=== PATIENT | female | born 1990 | race Caucasian/White ===

== ENCOUNTER 2017-05-21 15:47 | Emergency (ER) | payer SELFPAY ==
[2017-05-21 15:50] VITALS: BP 116/71; PULSE 88; TEMP 98.6; BMI 25.6
--- NOTE | 2017-05-21 17:17 | PDOC ---
History of Present Illness <Hailee Moseley - Last Filed: 05/21/17 20:19> <Gricel Huffman - Last Filed: 05/21/17 20:31> - General History Source: Patient Exam Limitations: No Limitations - History of Present Illness Initial Comments: 05/24/17 12:04 Agent is return to the emergency department per instruction to have repeat beta hCG and possible ultrasound to rule out intrauterine versus ectopic . Patient was seen here 2 days ago found to have a beta hCG of 772 with out any evidence of intrauterine per ultrasound. States has continued very faint pink spotting without nausea, cramping, or any fever. Last normal menses was April 19, has had history of miscarriage, and this was a wanted 05/24/17 14:57 Timing/Duration: unsure Severity: mild <Althea Antonio - Last Filed: 05/24/17 14:57> - General Chief Complaint: Vaginal Bleeding Stated Complaint: 5 wks preg , vag bleed Time Seen by Provider: 05/21/17 16:38 Past History <Hailee Moseley - Last Filed: 05/21/17 20:19> - Past Medical History Cardiac Disorders: Yes (heart murmur) - Reproductive History Is Patient Now?: Yes (#): 3 Para: 2 Cervical CA: No Dysfunctional Uterine Bleeding: No Ectopic : No Endometrial CA: No Polycystic Ovaries: No Therapeutic (s) & number: No Tubal Ligation: No Spontaneous : 1 - Immunization History Immunization Up to Date: Yes - Suicide/Smoking/Psychosocial Hx Smoking Status: No Smoking History: Never smoked Have you smoked in the past 12 months: No Number of Cigarettes Smoked Daily: 0 Hx Alcohol Use: No Drug/Substance Use Hx: No Substance Use Type: None Hx Substance Use Treatment: No <Gricel Huffman - Last Filed: 05/21/17 20:31> - Travel Traveled outside of the country in the last 30 days: No Close contact w/someone who was outside of country & ill: No <Althea Antonio - Last Filed: 05/24/17 14:57> - Past Medical History Allergies/Adverse Reactions: Allergies Allergy/AdvReac Type Severity Reaction Status Date / Time latex Allergy Intermediate Verified 05/24/17 11:31 penicillin G Allergy Mild Rash Verified 05/24/17 11:31 Home Medications: Ambulatory Orders No Home Medications 0 dose .ROUTE UTDICT 04/03/12 Review of Systems - Review of Systems Able to Perform ROS?: Yes Is the patient limited Zambian proficient: Yes Constitutional: Yes: See HPI. No: Symptoms Reported, Chills, Fever, Malaise HEENTM: No: Symptoms Reported Respiratory: No: Symptoms reported ABD/GI: Yes: See HPI. No: Symptoms Reported, Nausea, Vomiting, Abdominal cramping : No: Symptoms Reported Integumentary: No: Symptoms Reported All Other Systems: Reviewed and Negative <Althea Antonio - Last Filed: 05/24/17 14:57> *Physical Exam - Vital Signs Last Vital Signs Temp Pulse Resp BP Pulse Ox 98.6 F 88 18 116/71 98 05/21/17 15:48 05/21/17 15:48 05/21/17 15:48 05/21/17 15:48 05/21/17 16:48 <Hailee Moseley - Last Filed: 05/21/17 20:19> - Vital Signs Last Vital Signs Temp Pulse Resp BP Pulse Ox 98.6 F 88 18 116/71 98 05/21/17 15:48 05/21/17 15:48 05/21/17 15:48 05/21/17 15:48 05/21/17 16:48 <Gricel Huffman - Last Filed: 05/21/17 20:31> - Vital Signs Last Vital Signs Temp Pulse Resp BP Pulse Ox 98.6 F 88 18 116/71 98 05/21/17 15:48 05/21/17 15:48 05/21/17 15:48 05/21/17 15:48 05/21/17 16:48 - Physical Exam General Appearance: Yes: Nourished, Appropriately Dressed HEENT: positive: AVINASH, Normal ENT Inspection, Normal Voice, TMs Normal, Pharynx Normal Neck: positive: Supple. negative: Tender, Lymphadenopathy (R), Lymphadenopathy (L) Respiratory/Chest: positive: Lungs Clear, Normal Breath Sounds Gastrointestinal/Abdominal: positive: Normal Bowel Sounds, Soft. negative: Tender, Guarding, Rebound, Tenderness Integumentary: positive: Normal Color, Dry, Warm Neurologic: positive: plant hr manager II-XII NML intact, Fully Oriented, Alert, Normal Mood/ Affect, Normal Response, Motor Strength 5/5 <PacoAlthea - Last Filed: 05/24/17 14:57> ED Treatment Course - LABORATORY CBC & Chemistry Diagram: 05/21/17 17:20 05/21/17 17:20 - ADDITIONAL ORDERS Additional order review: Laboratory Results 05/21/17 05/21/17 05/21/17 17:20 17:20 17:20 PT with INR 13.50 H INR 1.22 H Sodium 137 Potassium 3.8 Chloride 106 Carbon Dioxide 25 Anion Gap 6 L BUN 9 D Creatinine 0.7 Creat Clearance w eGFR > 60 Random Glucose 77 D Calcium 8.5 Total Bilirubin 0.7 AST 11 L ALT 18 Alkaline Phosphatase 52 Total Protein 7.1 Albumin 3.9 Beta HCG, Quant 772.5 Urine Color Yellow Urine Appearance Clear Urine pH 5.0 D Urine Protein Negative Urine Glucose (UA) Negative Urine Ketones Negative Urine Blood Negative Urine Nitrite Negative Urine Bilirubin Negative Urine Urobilinogen Negative 05/21/17 17:20 RBC 4.19 MCV 86.9 MCHC 34.4 RDW 13.5 MPV 7.7 Neutrophils % 65.7 Lymphocytes % 23.5 Monocytes % 8.3 Eosinophils % 1.6 Basophils % 0.9 - Medications Given in the ED: ED Medications Discontinued Medications Generic Name Dose Route Start Last Admin Trade Name Braedenq PRN Reason Stop Dose Admin Sodium Chloride 1,000 mls @ 1,000 mls/hr 05/21/17 17:19 05/21/17 17:31 Normal Saline - IV 05/21/17 18:18 Not Given ASDIR STA <Hailee Moseley - Last Filed: 05/21/17 20:19> - LABORATORY CBC & Chemistry Diagram: 05/21/17 17:20 05/21/17 17:20 <Gricel Huffman - Last Filed: 05/21/17 20:31> - LABORATORY CBC & Chemistry Diagram: 05/21/17 17:20 05/21/17 17:20 - ADDITIONAL ORDERS Additional order review: Laboratory Results 05/21/17 17:20 WBC 7.8 RBC 4.19 Hgb 12.5 Hct 36.4 MCV 86.9 MCH 29.9 MCHC 34.4 RDW 13.5 Plt Count 235 MPV 7.7 Neutrophils % 65.7 Lymphocytes % 23.5 Monocytes % 8.3 Eosinophils % 1.6 Basophils % 0.9 05/21/17 17:20 Urine Culture - Final Urine - Urine Clean Catch NO GROWTH OBTAINED 05/21/17 17:20 RBC 4.19 MCV 86.9 MCHC 34.4 RDW 13.5 MPV 7.7 Neutrophils % 65.7 Lymphocytes % 23.5 Monocytes % 8.3 Eosinophils % 1.6 Basophils % 0.9 - Medications Given in the ED: ED Medications Discontinued Medications Generic Name Dose Route Start Last Admin Trade Name Jessica PRN Reason Stop Dose Admin Acetaminophen 650 mg 05/21/17 20:27 05/21/17 20:41 Tylenol - PO 05/21/17 20:28 650 mg ONCE ONE Administration Sodium Chloride 1,000 mls @ 1,000 mls/hr 05/21/17 17:19 05/21/17 17:31 Normal Saline - IV 05/21/17 18:18 Not Given ASDIR STA Ondansetron HCl 4 mg 05/21/17 20:27 05/21/17 20:41 Zofran Odt - SL 05/21/17 20:28 4 mg ONCE ONE Administration <Althea Antonio - Last Filed: 05/24/17 14:57> *DC/Admit/Observation/Transfer - Discharge Dispostion Admit: No <Hailee Moseley - Last Filed: 05/21/17 20:19> - Discharge Dispostion Admit: No <Gricel Huffman - Last Filed: 05/21/17 20:31> - Discharge Dispostion Admit: No <Althea Antonio - Last Filed: 05/24/17 14:57> Diagnosis at time of Disposition: Threatened , Vaginal bleeding in - Discharge Dispostion Disposition: HOME Condition at time of disposition: Stable - Referrals Referrals: Haydee Dawn MD [Primary Care Provider] - Temi Rodriguez MD [Staff Physician] - Kevan Lockhart MD [Staff Physician] - - Patient Instructions Printed Discharge Instructions: Threatened , DI for Ectopic Additional Instructions: you need to return to emergency room for repeat blood work in 72 hours, or see your ostetrician. your hormone levels are too low to see the yet. however, we still are concerned with ectopic . therefore, should you develop sudden worsening pain, feeling lightheaded or any concerns you should return to ED immediately. your blood type is O positive. your labs are attached as is your ultrasound report.
[2017-05-21] MEDS ORDERED: SODIUM CHLORIDE 1,000 ML IV STA (17:19)
[2017-05-21 17:38] LABS: BASOPHIL 0.9 % (0-2.0); EOSINOPHIL 1.6 % (0-4.5); MCH 29.9 pg (25.7-33.7); MCHC 34.4 g/dl (32.0-36.0); MEAN CELL VOLUME 86.9 fl (80-96); MEAN PLT VOLUME 7.7 fl (7.5-11.1); NEUTROPHILS 65.7 % (42.8-82.8); PLATELET COUNT 235 K/MM3 (134-434); RDW 13.5 % (11.6-15.6); WHITE BLOOD COUNT 7.8 K/mm3 (4.0-10.0)
[2017-05-21 17:48] LABS: INR 1.22 (0.82-1.09); PROTHROMBIN TIME (PATIENT) 13.5 SEC (9.98-11.88)
[2017-05-21 18:04] LABS: ALBUMIN 3.9 g/dl (3.4-5.0); ANION GAP 6 (8-16); CALCIUM 8.5 mg/dL (8.5-10.1); CO2 25 mmol/L (21-32); CREATININE 0.7 mg/dL (0.55-1.02); GLUCOSE,RANDOM 77 mg/dL (74-106); SGOT/AST 11 U/L (15-37); SGPT/ALT 18 U/L (12-78)
[2017-05-21 18:09] LABS: ALK PHOS 52 U/L (45-117); BILIRUBIN,TOTAL 0.7 mg/dL (0.2-1.0); TOT PROT 7.1 g/dl (6.4-8.2)
[2017-05-21 18:14] LABS: URINE APPEARANCE CLEAR; URINE BILIRUBIN NEGATIVE (NEGATIVE); URINE BLOOD NEGATIVE (NEGATIVE); URINE COLOR YELLOW; URINE GLUCOSE (UA) NEGATIVE (NEGATIVE); URINE KETONE NEGATIVE (NEGATIVE); URINE LEUK ESTERASE NEGATIVE (NEGATIVE); URINE NITRITE NEGATIVE (NEGATIVE); URINE PROTEIN NEGATIVE (NEGATIVE); URINE UROBILINOGEN NEGATIVE mg/dL (0.2-1.0)
[2017-05-21] MEDS ORDERED: ACETAMINOPHEN 325 MG TABLET (FP) PO ONE (20:27)
[2017-05-21] MEDS ORDERED: ONDANSETRON *ODT* 4 MG TABLET SL ONE (20:27)
[2017-05-21] MEDS ORDERED: ONDANSETRON *ODT* 4 MG TABLET ONE (20:30)
[2017-05-21] MEDS ORDERED: ACETAMINOPHEN 325 MG TABLET (FP) ONE (20:30)
== END 2017-05-21 20:42 | disposition home or self-care (01) ==
LOC: JER 15:47
DX: O20.0 Threatened abortion (principal); Z3A.01 Less than 8 weeks gestation of pregnancy
CPT/HCPCS: 36415; 76817-TC; 80053; 81003; 84702; 85025; 85610; 87086; 99283-25

== ENCOUNTER 2017-05-24 11:27 | Emergency (ER) | payer OTHER ==
[2017-05-24 11:31] VITALS: BP 110/70; PULSE 81; TEMP 98; BMI 26.4
--- NOTE | 2017-05-24 11:55 | PDOC ---
History of Present Illness - General Chief Complaint: [facility] [place] Stated Complaint: BETA HCG TEST Time Seen by Provider: 05/24/17 11:54 Exam Limitations: No Limitations Past History - Past Medical History Allergies/Adverse Reactions: Allergies Allergy/AdvReac Type Severity Reaction Status Date / Time latex Allergy Intermediate Verified 05/24/17 11:31 penicillin G Allergy Mild Rash Verified 05/24/17 11:31 Home Medications: Ambulatory Orders No Home Medications 0 dose .ROUTE UTDICT 04/03/12 Cardiac Disorders: Yes (heart murmur) - Reproductive History (#): 3 Para: 2 Cervical CA: No Dysfunctional Uterine Bleeding: No Ectopic : No Endometrial CA: No Polycystic Ovaries: No Therapeutic (s) & number: No Tubal Ligation: No Spontaneous : 1 - Immunization History Immunization Up to Date: Yes - Suicide/Smoking/Psychosocial Hx Smoking Status: No Smoking History: Never smoked Have you smoked in the past 12 months: No Number of Cigarettes Smoked Daily: 0 Information on smoking cessation initiated: No Hx Alcohol Use: No Drug/Substance Use Hx: No Substance Use Type: None Hx Substance Use Treatment: No *Physical Exam - Vital Signs Last Vital Signs Temp Pulse Resp BP Pulse Ox 98 F 81 18 110/70 100 05/24/17 11:28 05/24/17 11:28 05/24/17 11:28 05/24/17 11:28 05/24/17 11:28
--- NOTE | 2017-05-24 13:03 | PDOC ---
History of Present Illness - General Chief Complaint: [facility] [place] Complaint: BETA HCG TEST Time Seen by Provider: 05/24/17 11:54 History Source: Patient Exam Limitations: No Limitations - History of Present Illness Initial Comments: 05/24/17 11:30 Agent is return to the emergency department per instruction to have repeat beta hCG and possible ultrasound to rule out intrauterine versus ectopic . Patient was seen here 2 days ago found to have a beta hCG of 772 with out any evidence of intrauterine per ultrasound. States has continued very faint pink spotting without nausea, cramping, or any fever. Last normal menses was April 19, has had history of miscarriage, and this was a wanted Timing/Duration: unsure Severity: mild Associated Symptoms: reports: denies symptoms Past History - Travel Traveled outside of the country in the last 30 days: No Close contact w/someone who was outside of country & ill: No - Past Medical History Allergies/Adverse Reactions: Allergies Allergy/AdvReac Type Severity Reaction Status Date / Time latex Allergy Intermediate Verified 05/24/17 11:31 penicillin G Allergy Mild Rash Verified 05/24/17 11:31 Home Medications: Ambulatory Orders No Home Medications 0 dose .ROUTE UTDICT 04/03/12 Cardiac Disorders: Yes (heart murmur) - Reproductive History (#): 3 Para: 2 Cervical CA: No Dysfunctional Uterine Bleeding: No Ectopic : No Endometrial CA: No Polycystic Ovaries: No Therapeutic (s) & number: No Tubal Ligation: No Spontaneous : 1 - Immunization History Immunization Up to Date: Yes - Suicide/Smoking/Psychosocial Hx Smoking Status: No Smoking History: Never smoked Have you smoked in the past 12 months: No Number of Cigarettes Smoked Daily: 0 Information on smoking cessation initiated: No Hx Alcohol Use: No Drug/Substance Use Hx: No Substance Use Type: None Hx Substance Use Treatment: No Review of Systems - Review of Systems Able to Perform ROS?: Yes Is the patient limited Divehi proficient: Yes Constitutional: Yes: See HPI. No: Symptoms Reported, Chills, Fever, Loss of Appetite, Malaise HEENTM: No: Symptoms Reported Respiratory: No: Symptoms reported Cardiac (ROS): No: Symptoms Reported Musculoskeletal: No: Symptoms Reported Integumentary: Yes: See HPI. No: Symptoms Reported, Bruising Neurological: Yes: See HPI. No: Symptoms reported All Other Systems: Reviewed and Negative *Physical Exam - Vital Signs Last Vital Signs Temp Pulse Resp BP Pulse Ox 98 F 81 18 110/70 100 05/24/17 11:28 05/24/17 11:28 05/24/17 11:28 05/24/17 11:28 05/24/17 11:28 - Physical Exam General Appearance: Yes: Nourished, Appropriately Dressed. No: Apparent Distress HEENT: positive: AVINASH, Normal ENT Inspection, Normal Voice, TMs Normal, Pharynx Normal Neck: positive: Supple. negative: Tender Respiratory/Chest: positive: Lungs Clear Gastrointestinal/Abdominal: positive: Soft. negative: Tender Musculoskeletal: negative: CVA Tenderness ED Treatment Course - ADDITIONAL ORDERS Additional order review: Laboratory Results 05/24/17 11:55 Beta HCG, Quant 2474.7 - RADIOLOGY Radiology Studies Ordered: Category Date Time Status TRANSVAGINAL US PREG [US] Stat Ultrasound 05/24/17 12:03 Taken *DC/Admit/Observation/Transfer Diagnosis at time of Disposition: Normal IUP (intrauterine ) on ultrasound Qualifiers: Trimester: first trimester Qualified Code(s): Z34.91 - Encounter for supervision of normal , unspecified, first trimester - Discharge Dispostion Disposition: HOME Condition at time of disposition: Stable Admit: No - Referrals Referrals: Haydee Dawn MD [Primary Care Provider] - Car Sanchez MD [Staff Physician] - - Patient Instructions Printed Discharge Instructions: Vaginal Bleeding During Additional Instructions: Rest, drink lots of fluids follow-up with HSE MANAGER to initiate care Return to emergency department for fevers, worsening bleeding or cramping, or other problems. - Post Discharge Activity Forms/Work/School Notes: Back to Work
== END 2017-05-24 14:00 | disposition home or self-care (01) ==
LOC: JERFT 11:27
DX: O26.891 Other specified pregnancy related conditions, first trimester (principal); Z3A.01 Less than 8 weeks gestation of pregnancy
CPT/HCPCS: 36415; 76817-TC; 84702; 99281-25

== ENCOUNTER 2017-06-06 10:05 | Emergency (ER) | payer OTHER ==
[2017-06-06 10:12] VITALS: BMI 26.4
--- NOTE | 2017-06-06 11:36 | PDOC ---
History of Present Illness - General History Source: Patient Exam Limitations: No Limitations - History of Present Illness Initial Comments: 06/06/17 12:26 The patient is a 26 year old female (7 weeks by LMP) with a significant past medical history of heart murmur (on no tx) who presents to the emergency department with 1 episode of hematemesis last night. Patient endorses 1 episode of blood mixed in with emesis after she had NBNB emesis 4 times last night. In addition, patient reports abdominal cramping with vaginal spotting (no clots) mixed with white discharge intermittently for 4 weeks. Pt was seen here on 05/24 for the vaginal bleeding and diagnosed with threatened . She has not seen her OB doctor due to insurance issues. She also reports nausea and chills. Patient has not been able to tolerate PO liquids or solids. LMP: April 19, 2017. Patient reports unprotected sex with one partner for the past year. No hx of STDs Patient denies sick contacts, recent illnesses, recent travel. She denies chest pain, headache or dizziness. She denies fever, chills, abdominal pain, nausea, vomit, diarrhea or constipation. She denies dysuria, frequency, urgency or hematuria. Allergies: Latex, penicillin G Past surgical history: None Social history: None PCP: None <Sunshine Nguyen - Last Filed: 06/06/17 12:26> <Michelle Jamison - Last Filed: 06/06/17 17:36> - General Chief Complaint: Nausea/Vomiting Stated Complaint: LOWER PELVIC PAIN Time Seen by Provider: 06/06/17 10:34 Past History <Sunshine Nguyen - Last Filed: 06/06/17 12:26> - Past Medical History Cardiac Disorders: Yes (heart murmur) - Reproductive History (#): 3 Para: 2 Cervical CA: No Dysfunctional Uterine Bleeding: No Ectopic : No Endometrial CA: No Polycystic Ovaries: No Therapeutic (s) & number: No Tubal Ligation: No Spontaneous : 1 - Immunization History Immunization Up to Date: Yes - Suicide/Smoking/Psychosocial Hx Smoking Status: No Smoking History: Never smoked Have you smoked in the past 12 months: No Number of Cigarettes Smoked Daily: 0 Hx Alcohol Use: No Drug/Substance Use Hx: No Substance Use Type: None Hx Substance Use Treatment: No <Michelle Jamison - Last Filed: 06/06/17 17:36> - Past Medical History Allergies/Adverse Reactions: Allergies Allergy/AdvReac Type Severity Reaction Status Date / Time latex Allergy Intermediate Verified 06/06/17 10:12 penicillin G Allergy Mild Rash Verified 06/06/17 10:12 Home Medications: Ambulatory Orders No Home Medications 0 dose .ROUTE UTDICT 04/03/12 Review of Systems - Review of Systems Able to Perform ROS?: Yes Comments:: 06/06/17 12:27 GENERAL/CONSTITUTIONAL:+chills. No fever. No weakness. HEAD, EYES, EARS, NOSE AND THROAT: No change in vision. No ear pain or discharge. No sore throat. CARDIOVASCULAR: No chest pain or shortness of breath. RESPIRATORY: No cough, wheezing, or hemoptysis. GASTROINTESTINAL: +nausea, vomiting, hematemesis. No diarrhea or constipation. GENITOURINARY: +pelvic cramping. No dysuria, frequency, or change in urination. MUSCULOSKELETAL: No joint or muscle swelling or pain. No neck or back pain. SKIN: No rash NEUROLOGIC: No headache, vertigo, loss of consciousness, or change in strength/ sensation. ENDOCRINE: No increased thirst. No abnormal weight change. HEMATOLOGIC/LYMPHATIC: No anemia, easy bleeding, or history of blood clots. ALLERGIC/IMMUNOLOGIC: No hives or skin allergy. PELVIC: +vaginal bleeding. +vaginal discharge. <PatrikcSunshine coto - Last Filed: 06/06/17 12:26> *Physical Exam - Vital Signs Last Vital Signs Temp Pulse Resp BP Pulse Ox 98.3 F 101 H 20 113/67 99 06/06/17 10:10 06/06/17 10:10 06/06/17 10:10 06/06/17 10:10 06/06/17 10:10 - Physical Exam Comments: 06/06/17 12:27 GENERAL: Awake, alert, and fully oriented, in no acute distress HEAD: No signs of trauma EYES: PERRLA, EOMI, sclera anicteric, conjunctiva clear ENT: Auricles normal inspection, hearing grossly normal, nares patent, oropharynx clear without exudates. Moist mucosa NECK: Normal ROM, supple, no lymphadenopathy, JVD, or masses LUNGS: Breath sounds equal, clear to auscultation bilaterally. No wheezes, and no crackles HEART: Regular rate and rhythm, normal S1 and S2, no murmurs, rubs or gallops ABDOMEN: Soft, nontender, normoactive bowel sounds. No guarding, no rebound. No masses HAND SCREEN PRINTER: os closed. moderate amount of malodorous thick white discharge in the vault. No CMT, no adnexal ttp, no bleeding. EXTREMITIES: Normal range of motion, no edema. No clubbing or cyanosis. No cords, erythema, or tenderness NEUROLOGICAL: Normal speech, cranial nerves intact, negative pronator drift, 5/ 5 strength in all 4 extremities, normal sensation to light touch in all 4 extremities, normal cerebellar exam, normal gait, normal reflexes and tone SKIN: Warm, Dry, normal turgor, no rashes or lesions noted. <Sunshine Nguyen - Last Filed: 06/06/17 12:26> - Vital Signs Last Vital Signs Temp Pulse Resp BP Pulse Ox 98.3 F 101 H 20 113/67 99 06/06/17 10:10 06/06/17 10:10 06/06/17 10:10 06/06/17 10:10 06/06/17 10:10 <Michelle Jamison - Last Filed: 06/06/17 17:36> ED Treatment Course - LABORATORY CBC & Chemistry Diagram: 06/06/17 11:36 06/06/17 11:36 - ADDITIONAL ORDERS Additional order review: 06/06/17 11:36 RBC 4.61 MCV 86.9 MCHC 33.8 RDW 13.3 MPV 7.8 Neutrophils % 71.7 Lymphocytes % 18.0 D Monocytes % 8.6 Eosinophils % 1.1 Basophils % 0.6 - Medications Given in the ED: ED Medications Discontinued Medications Generic Name Dose Route Start Last Admin Trade Name Freq PRN Reason Stop Dose Admin Ondansetron HCl 4 mg 06/06/17 11:37 06/06/17 11:47 Zofran Injection IVPUSH 06/06/17 11:38 4 mg ONCE ONE Administration Sodium Chloride 1,000 ml 06/06/17 11:37 06/06/17 11:47 Normal Saline - IV 06/06/17 11:38 1,000 ml ONCE ONE Administration <Sunshine Nguyen - Last Filed: 06/06/17 12:26> - LABORATORY CBC & Chemistry Diagram: 06/06/17 11:36 06/06/17 11:36 - RADIOLOGY Radiology Studies Ordered: Category Date Time Status TRANSVAGINAL US PREG [US] Stat Ultrasound 06/06/17 11:29 Ordered <Michelle Jamison - Last Filed: 06/06/17 17:36> Medical Decision Making - Medical Decision Making 06/06/17 12:31 26-year-old female presents at approximately 7 weeks with one episode of hematemesis last night in the setting of N/V, and continuing vaginal spotting and white vaginal discharge. Patient also reporting by mouth intolerance. Vitals are unremarkable here in the emergency department. Exam is remarkable for thick malodorous vaginal discharge on speculum exam that no cervical motion tenderness and no adnexal tenderness to palpation. Episode of hematemesis likely [place], given it followed multiple episodes of vomiting and patient said it was bright red blood mixed in with emesis. Vaginal bleeding concerning for threatened . Vaginal discharge c/f possible STD - GC/CT swab sent. -labs -UA -GC/CT -TVUS -IVF -antiemetics -PO chall -reassess 06/06/17 17:08 US with normal intrauterine with small subchorionic hematoma - this may be the reason for her vaginal spotting. Labs and UA unremarkable. GC/CT pending. Pt with no vomiting during 7 hour ED stay. Tolerating PO. Will DC to follow up with OB as an outpatient. I discussed the physical exam findings, ancillary test results and final diagnoses with the patient. I answered all of the patient's questions. The patient was satisfied with the care received and felt comfortable with the discharge plan and treatment plan. The patient will call their primary care physician within 24 hours to arrange follow-up and will return to the Emergency Department with any new, persistent or worsening symptoms. <Michelle Jamison - Last Filed: 06/06/17 17:36> *DC/Admit/Observation/Transfer - Attestations Scribe Attestion: 06/06/17 12:27 Documentation prepared by Sunshine Nguyen, acting as medical assembly for Michelle Jamison MD <Sunshine Nguyen - Last Filed: 06/06/17 12:26> - Discharge Dispostion Admit: No - Attestations Physician Attestion: 06/06/17 17:33 I, Dr. Michelle Jamison MD, attest that this document has been prepared under my direction and personally reviewed by me in its entirety. I further attest, that it accurately reflects all work, treatment, procedures and medical decision -making performed by me. <Michelle Jamison - Last Filed: 06/06/17 17:36> Diagnosis at time of Disposition: Vaginal bleeding in , Normal IUP (intrauterine ) on ultrasound - Discharge Dispostion Disposition: HOME Condition at time of disposition: Stable - Patient Instructions Printed Discharge Instructions: DI for Vomiting -- Adult Additional Instructions: Please follow up with an OB doctor within 1 week. Return to the emergency department immediately for any new or concerning symptoms or if your symptoms get worse. Thank you for coming to the Emergency Department today for your care. It was a pleasure to see you today. Please note that your evaluation is INCOMPLETE until you follow-up with your doctor.
[2017-06-06] MEDS ORDERED: ONDANSETRON 4 MG/2 ML VIAL IVPUSH ONE (11:37)
[2017-06-06] MEDS ORDERED: SODIUM CHLORIDE 0.9% 500 ML INFUS.BAG IV ONE (11:37)
[2017-06-06] MEDS ORDERED: ONDANSETRON 4 MG/2 ML VIAL ONE (11:41)
[2017-06-06 11:45] LABS: BASOPHIL 0.6 % (0-2.0); EOSINOPHIL 1.1 % (0-4.5); MCH 29.3 pg (25.7-33.7); MCHC 33.8 g/dl (32.0-36.0); MEAN CELL VOLUME 86.9 fl (80-96); MEAN PLT VOLUME 7.8 fl (7.5-11.1); NEUTROPHILS 71.7 % (42.8-82.8); PLATELET COUNT 234 K/MM3 (134-434); RDW 13.3 % (11.6-15.6); WHITE BLOOD COUNT 8.3 K/mm3 (4.0-10.0)
[2017-06-06 12:10] LABS: ALBUMIN 4.1 g/dl (3.4-5.0); ANION GAP 6 (8-16); BILIRUBIN,TOTAL 0.9 mg/dL (0.2-1.0); CALCIUM 9.4 mg/dL (8.5-10.1); CO2 27 mmol/L (21-32); CREATININE 0.8 mg/dL (0.55-1.02); GLUCOSE,RANDOM 74 mg/dL (74-106); MAGNESIUM 2.2 mg/dL (1.8-2.4); SGOT/AST 11 U/L (15-37); SGPT/ALT 20 U/L (12-78); TOT PROT 7.8 g/dl (6.4-8.2)
[2017-06-06 12:25] LABS: ALK PHOS 57 U/L (45-117)
[2017-06-06 13:01] LABS: URINE APPEARANCE SLCLOUDY; URINE BILIRUBIN NEGATIVE (NEGATIVE); URINE BLOOD NEGATIVE (NEGATIVE); URINE COLOR YELLOW; URINE GLUCOSE (UA) NEGATIVE (NEGATIVE); URINE KETONE TRACE (NEGATIVE); URINE LEUK ESTERASE TRACE (NEGATIVE); URINE NITRITE NEGATIVE (NEGATIVE); URINE PROTEIN NEGATIVE (NEGATIVE)
[2017-06-06 13:24] LABS: URINE MUCUS MODERATE; URINE WBC 2 /hpf (3-5)
[2017-06-06 17:48] VITALS: BP 100/65; PULSE 72; TEMP 98.6
--- NOTE | 2017-06-06 19:06 | PDOC ---
*Physical Exam - Vital Signs Last Vital Signs Temp Pulse Resp BP Pulse Ox 98.6 F 72 18 100/65 100 06/06/17 17:47 06/06/17 17:47 06/06/17 17:47 06/06/17 17:47 06/06/17 17:47 ED Treatment Course - LABORATORY CBC & Chemistry Diagram: 06/06/17 11:36 06/06/17 11:36 - ADDITIONAL ORDERS Additional order review: Laboratory Results 06/06/17 06/06/17 06/06/17 11:36 11:34 11:29 Sodium 135 L Potassium 3.9 Chloride 102 Carbon Dioxide 27 Anion Gap 6 L BUN 6 L D Creatinine 0.8 Creat Clearance w eGFR > 60 Random Glucose 74 Calcium 9.4 Magnesium 2.2 D Total Bilirubin 0.9 D AST 11 L ALT 20 Alkaline Phosphatase 57 Total Protein 7.8 Albumin 4.1 Beta HCG, Quant 98264.9 Urine Color Yellow Urine Appearance Slcloudy Urine pH 6.0 Ur Specific [place] 1.020 Urine Protein Negative Urine Glucose (UA) Negative Urine Ketones Trace H Urine Blood Negative Urine Nitrite Negative Urine Bilirubin Negative Urine Urobilinogen 2.0 H Urine RBC None Urine WBC 2 Ur Epithelial Cells Rare Urine Mucus Moderate Blood Type O POSITIVE Antibody Screen Negative 06/06/17 11:36 RBC 4.61 MCV 86.9 MCHC 33.8 RDW 13.3 MPV 7.8 Neutrophils % 71.7 Lymphocytes % 18.0 D Monocytes % 8.6 Eosinophils % 1.1 Basophils % 0.6 - Medications Given in the ED: ED Medications Discontinued Medications Generic Name Dose Route Start Last Admin Trade Name Jessica PRN Reason Stop Dose Admin Ondansetron HCl 4 mg 06/06/17 11:37 06/06/17 11:47 Zofran Injection IVPUSH 06/06/17 11:38 4 mg ONCE ONE Administration Sodium Chloride 1,000 ml 06/06/17 11:37 06/06/17 11:47 Normal Saline - IV 06/06/17 11:38 1,000 ml ONCE ONE Administration Medical Decision Making - Medical Decision Making 06/06/17 19:02 pt called saying her prescription did not go through to the pharmacy. sent Rx to pharmacy *DC/Admit/Observation/Transfer Diagnosis at time of Disposition: Vaginal bleeding in , Normal IUP (intrauterine ) on ultrasound - Discharge Dispostion Disposition: HOME Condition at time of disposition: Stable - Prescriptions Prescriptions: Ondansetron [Zofran Odt -] 4 mg SL TID PRN #6 od.tablet PRN Reason: Nausea - Referrals - Patient Instructions Printed Discharge Instructions: DI for Vomiting -- Adult Additional Instructions: Please follow up with an OB doctor within 1 week. Return to the emergency department immediately for any new or concerning symptoms or if your symptoms get worse. Thank you for coming to the Emergency Department today for your care. It was a pleasure to see you today. Please note that your evaluation is INCOMPLETE until you follow-up with your doctor. - Post Discharge Activity
== END 2017-06-06 17:49 | disposition home or self-care (01) ==
LOC: JER 10:05
PROC: 3E0333Z Introduction of Anti-inflammatory into Peripheral Vein, Percutaneous Approach (ICD-10-PCS; principal; 2017-06-06)
PROC: 3E0337Z Introduction of Electrolytic and Water Balance Substance into Peripheral Vein, Percutaneous Approach (ICD-10-PCS; 2017-06-06)
DX: O26.891 Other specified pregnancy related conditions, first trimester (principal); N93.9 Abnormal uterine and vaginal bleeding, unspecified; Z3A.01 Less than 8 weeks gestation of pregnancy
CPT/HCPCS: 36415; 76801-TC; 80053; 81003; 81015; 83735; 84702; 85025; 86850; 86900; 86901; 87086; 87491; 87591; 96361; 96374; 99284-25

== ENCOUNTER 2017-06-13 17:47 | Emergency (ER) | payer OTHER ==
[2017-06-13 17:52] VITALS: BMI 26.4
--- NOTE | 2017-06-13 18:15 | PDOC ---
History of Present Illness - General Chief Complaint: Nausea/Vomiting Stated Complaint: VOMITTING 8wks preg Time Seen by Provider: 06/13/17 18:11 History Source: Patient - History of Present Illness Initial Comments: 06/13/17 18:24 Patient is a 27 y.o. female @ 8 weeks gestation with a PMH of repeated visits to the ED for her primary care presents to our ED today c/o a 5 day h/o of nausea and vomiting. Patient states she has been vomiting 10-15x daily ( whitish/yellowsih, no yoselin blood) and has limited tolerance to PO intake. Patient denies any systemic signs of infection including fevers or chills. Patient further denies any abdominal pain, chest pain or shortness of breath and notes the Zofran she was prescribed on discharge from her 06/06 evaluation worked. Past History - Past Medical History Allergies/Adverse Reactions: Allergies Allergy/AdvReac Type Severity Reaction Status Date / Time latex Allergy Intermediate Verified 06/13/17 17:52 penicillin G Allergy Mild Rash Verified 06/13/17 17:52 Home Medications: Ambulatory Orders No Home Medications 0 dose .ROUTE UTDICT 04/03/12 Ondansetron [Zofran Odt -] 4 mg SL TID PRN #6 od.tablet 06/06/17 Nitrofurantoin Monohyd/M-Cryst [Macrobid -] 100 mg PO BID #14 capsule 06/14/17 Ondansetron [Zofran Odt -] 4 mg SL TID #15 od.tablet 06/14/17 Cardiac Disorders: Yes (heart murmur) - Reproductive History (#): 3 Para: 2 Cervical CA: No Dysfunctional Uterine Bleeding: No Ectopic : No Endometrial CA: No Polycystic Ovaries: No Therapeutic (s) & number: No Tubal Ligation: No Spontaneous : 1 - Immunization History Immunization Up to Date: Yes - Suicide/Smoking/Psychosocial Hx Smoking Status: No Smoking History: Never smoked Have you smoked in the past 12 months: No Number of Cigarettes Smoked Daily: 0 Hx Alcohol Use: No Drug/Substance Use Hx: No Substance Use Type: None Hx Substance Use Treatment: No Review of Systems - Review of Systems Constitutional: No: Chills, Fever HEENTM: No: Blurred Vision, Double Vision Respiratory: No: Cough, Shortness of Breath Cardiac (ROS): No: Chest Pain, Irregular Heart Rate, Lightheadedness, Palpitations ABD/GI: Yes: Nausea, Vomiting. No: Constipated, Diarrhea : No: Burning, Dysuria All Other Systems: Reviewed and Negative *Physical Exam - Vital Signs Last Vital Signs Temp Pulse Resp BP Pulse Ox 98.7 F 83 17 118/73 99 06/13/17 17:50 06/13/17 17:50 06/13/17 17:50 06/13/17 17:50 06/13/17 17:50 - Physical Exam General Appearance: Yes: Nourished, Appropriately Dressed Neck: positive: Trachea midline, Supple Respiratory/Chest: positive: Lungs Clear, Normal Breath Sounds Cardiovascular: positive: S1, S2 Gastrointestinal/Abdominal: positive: Soft Neurologic: positive: Fully Oriented, Alert ED Treatment Course - LABORATORY CBC & Chemistry Diagram: 06/13/17 18:36 06/13/17 18:36 Medical Decision Making - Medical Decision Making 06/16/17 21:43 Patient is a 27 y.o. female @ 8 weeks gestation who presents with a c/o of repeated nausea and vomiting. Clinical suspicion for hyperemesis gravidum is low as patient is in her first trimester. DDx likely vomiting associated with vs. gatroenteritis PLAN: 1. CBC, CMP 2. UA/Urine 3. IV NS Patient signed out to Dr. Beach (Resident) in stable condition. *DC/Admit/Observation/Transfer Diagnosis at time of Disposition: Vomiting Qualifiers: Qualified Code(s): R11.2 - Nausea with vomiting, unspecified - Discharge Dispostion Disposition: HOME - Prescriptions Prescriptions: Nitrofurantoin Monohyd/M-Cryst [Macrobid -] 100 mg PO BID #14 capsule Ondansetron [Zofran Odt -] 4 mg SL TID #15 od.tablet - Patient Instructions Printed Discharge Instructions: DI for Vomiting -- Adult Additional Instructions: Please follow up with an OB doctor within 1-2 weeks. Please return if any fever , exacerbation of symptoms, or other concerning developments. Print Language: AZERI
--- NOTE | 2017-06-13 18:30 | PDOC ---
Attending Attestation - Resident Resident Name: JahairaPricilla - ED Attending Attestation I have performed the following: I have examined & evaluated the patient, The case was reviewed & discussed with the resident, I agree w/resident's findings & plan, Exceptions are as noted - HPI HPI: 06/13/17 18:25 26yo F currently 8 weeks preg p/w 5 days of nausea and vomiting. Reports 10 -15 episodes of NBNB emesis per day a/w decreased PO intake. Has not been able to keep anything down since yesterday. Reports that the zofran she was prescribed last time helped but she ran out. Pt was seen by me last week and was advised to f/u with OB and PMD and has yet to do so because she is uninsured until 07/05. Denies other symptoms of fevers, chills, dizziness, SOB, abd pain, vaginal dc or bleeding, focal weakness or numbness. Reports vaginal bleeding has stopped since she was last here. - Physicial Exam PE: 06/13/17 18:28 GENERAL: Awake, alert, and fully oriented, in no acute distress HEAD: No signs of trauma EYES: PERRLA, EOMI, sclera anicteric, conjunctiva clear ENT: Auricles normal inspection, hearing grossly normal, nares patent, oropharynx clear without exudates. Moist mucosa NECK: Normal ROM, supple, no lymphadenopathy, JVD, or masses LUNGS: Breath sounds equal, clear to auscultation bilaterally. No wheezes, and no crackles HEART: Regular rate and rhythm, normal S1 and S2, no murmurs, rubs or gallops ABDOMEN: Soft, nontender, normoactive bowel sounds. No guarding, no rebound. No masses EXTREMITIES: Normal range of motion, no edema. No clubbing or cyanosis. No cords, erythema, or tenderness NEUROLOGICAL: Normal speech, cranial nerves intact, negative pronator drift, 5/ 5 strength in all 4 extremities, normal sensation to light touch in all 4 extremities, normal cerebellar exam, normal gait, normal reflexes and tone SKIN: Warm, Dry, normal turgor, no rashes or lesions noted. - Medical Decision Making 06/13/17 20:26 26-year-old female currently 8 weeks presents with nausea and vomiting for 5 days. Vitals and exam are unremarkable. Differential includes but is not limited to gastroenteritis vs hypermesis of vs infection. -labs -UA -IVF -antiemetics -reassess 06/13/17 22:32 UA+ for infection. Pt tolerated PO challenge. Will DC with macrobid and ODT zofran PRN nausea. I discussed the physical exam findings, ancillary test results and final diagnoses with the patient. I answered all of the patient's questions. The patient was satisfied with the care received and felt comfortable with the discharge plan and treatment plan. The patient will call their primary care physician within 24 hours to arrange follow-up and will return to the Emergency Department with any new, persistent or worsening symptoms.
[2017-06-13] MEDS ORDERED: SODIUM CHLORIDE 0.9% 1000 ML INFUS.BAG IV ONE (18:32)
[2017-06-13 18:49] LABS: BASOPHIL 0.9 % (0-2.0); EOSINOPHIL 0.7 % (0-4.5); MCH 29.6 pg (25.7-33.7); MEAN CELL VOLUME 87.1 fl (80-96); MEAN PLT VOLUME 7.7 fl (7.5-11.1); NEUTROPHILS 73.4 % (42.8-82.8); PLATELET COUNT 220 K/MM3 (134-434); RDW 13.1 % (11.6-15.6)
[2017-06-13 19:05] LABS: URINE APPEARANCE CLOUDY; URINE BILIRUBIN NEGATIVE (NEGATIVE); URINE BLOOD NEGATIVE (NEGATIVE); URINE COLOR DKYELLOW; URINE GLUCOSE (UA) NEGATIVE (NEGATIVE); URINE KETONE 2+ (NEGATIVE); URINE NITRITE NEGATIVE (NEGATIVE)
[2017-06-13] MEDS ORDERED: ONDANSETRON 4 MG/2 ML VIAL IVPB ONE (19:21)
--- NOTE | 2017-06-13 19:28 | PDOC ---
*Physical Exam - Vital Signs Last Vital Signs Temp Pulse Resp BP Pulse Ox 98.7 F 83 17 118/73 99 06/13/17 17:50 06/13/17 17:50 06/13/17 17:50 06/13/17 17:50 06/13/17 17:50 ED Treatment Course - LABORATORY CBC & Chemistry Diagram: 06/13/17 18:36 06/13/17 18:36 - ADDITIONAL ORDERS Additional order review: 06/13/17 18:36 RBC 4.27 MCV 87.1 MCHC 34.0 RDW 13.1 MPV 7.7 Neutrophils % 73.4 Lymphocytes % 18.0 Monocytes % 7.0 Eosinophils % 0.7 Basophils % 0.9 - Medications Given in the ED: ED Medications Discontinued Medications Generic Name Dose Route Start Last Admin Trade Name Freq PRN Reason Stop Dose Admin Sodium Chloride 1,000 ml 06/13/17 18:32 06/13/17 18:44 Normal Saline - IV 06/13/17 18:33 1,000 ml ONCE ONE Administration Medical Decision Making - Medical Decision Making 06/13/17 19:27 Care taken over from Dr. Campo. Patient represents with same complaint of last week. 06/13/17 20:19 Patient found to have UTI. Macrodantin proscribed in ED and prescription called to patient's pharmacy. Will discharge with instructions to follow-up with OB/ [facility]. 06/13/17 21:08 Patient vomited approximately 2030. Given additional 4mg zofran and 2nd liter of NS. Oral macrobid given after this. 06/13/17 22:19 Patient successfully completed oral challenge. Discharging to home. *DC/Admit/Observation/Transfer Diagnosis at time of Disposition: Vomiting Qualifiers: Vomiting type: unspecified Vomiting Intractability: non-intractable Nausea presence: with nausea Qualified Code(s): R11.2 - Nausea with vomiting, unspecified - Discharge Dispostion Disposition: HOME - Prescriptions Prescriptions: Nitrofurantoin Monohyd/M-Cryst [Macrobid -] 100 mg PO BID #14 capsule - Patient Instructions Printed Discharge Instructions: DI for Vomiting -- Adult Additional Instructions: Please return if any fever, exacerbation of symptoms, or other concerning developments.
[2017-06-13 19:30] LABS: URINE PROTEIN 1+ (NEGATIVE)
[2017-06-13] MEDS ORDERED: ONDANSETRON 4 MG/2 ML VIAL ONE ×2 (19:31→20:58)
[2017-06-13 19:32] LABS: URINE BACTERIA FEW /hpf (NONE SEEN); URINE MUCUS MANY; URINE RBC 4 /hpf (0-3); URINE WBC 20 /hpf (3-5)
[2017-06-13 20:07] LABS: ALK PHOS 49 U/L (45-117); ANION GAP 12 (8-16); BILIRUBIN,TOTAL 0.7 mg/dL (0.2-1.0); CO2 23 mmol/L (21-32); CREATININE 0.7 mg/dL (0.55-1.02); GLUCOSE,RANDOM 79 mg/dL (74-106); SGOT/AST 11 U/L (15-37); SGPT/ALT 18 U/L (12-78); TOT PROT 7.3 g/dl (6.4-8.2)
[2017-06-13] MEDS ORDERED: ONDANSETRON 4 MG/2 ML VIAL IVPUSH ONE (20:30)
[2017-06-13] MEDS ORDERED: NITROFURANTOIN MACROCRYSTAL 50 MG CAPSULE (FP) PO SCH (20:30)
[2017-06-13] MEDS ORDERED: SODIUM CHLORIDE 1,000 ML IV STA (20:56)
[2017-06-13] MEDS ORDERED: NITROFURANTOIN MACROCRYSTAL 50 MG CAPSULE (FP) ONE (20:58)
[2017-06-13 22:33] VITALS: BP 124/78; PULSE 82; TEMP 98.1
[2017-06-13 22:55] LABS: URINE LEUK ESTERASE 1+ (NEGATIVE)
== END 2017-06-13 22:00 | disposition home or self-care (01) ==
LOC: JER 17:47
PROC: 3E0337Z Introduction of Electrolytic and Water Balance Substance into Peripheral Vein, Percutaneous Approach (ICD-10-PCS; principal; 2017-06-13)
DX: O26.891 Other specified pregnancy related conditions, first trimester (principal); Z3A.08 8 weeks gestation of pregnancy; R11.2 Nausea with vomiting, unspecified
CPT/HCPCS: 36415; 80053; 81003; 81015; 84702; 85025; 99283-25

== ENCOUNTER 2017-07-02 18:24 | Emergency (ER) | payer OTHER ==
[2017-07-02 18:34] VITALS: BP 102/58; PULSE 90; TEMP 98.1; BMI 26.0
--- NOTE | 2017-07-02 19:39 | PDOC ---
History of Present Illness <Cori Lu - Last Filed: 07/02/17 22:19> - General History Source: Patient Exam Limitations: No Limitations - History of Present Illness Initial Comments: 07/02/17 19:54 27 y/o F (LMP: April 19, A2) presents to the ED with vaginal bleeding today. Patient was at work today and noticed pelvic pain, which prompted her to use the bathroom. She reports that she saw wine red colored blood on the tissue paper. She states she went to the bathroom a few hours later and noticed more blood. Patient states she is currently on antibiotics for a UTI, but has been vomiting most of it. Denies fever, chills. Denies headache, dizziness. Denies diarrhea, constipation. PMHx: heart murmur Allergies: penicillin <Maritza Cary - Last Filed: 07/02/17 22:30> - General Chief Complaint: Vaginal Bleeding Stated Complaint: VAGINAL BLEEDING/10 WKS Time Seen by Provider: 07/02/17 19:23 Past History - Past Medical History Cardiac Disorders: Yes (heart murmur) - Reproductive History (#): 3 Para: 2 Cervical CA: No Dysfunctional Uterine Bleeding: No Ectopic : No Endometrial CA: No Polycystic Ovaries: No Therapeutic (s) & number: No Tubal Ligation: No Spontaneous : 1 - Immunization History Immunization Up to Date: Yes - Suicide/Smoking/Psychosocial Hx Smoking Status: No Smoking History: Never smoked Have you smoked in the past 12 months: No Number of Cigarettes Smoked Daily: 0 Hx Alcohol Use: No Drug/Substance Use Hx: No Substance Use Type: None Hx Substance Use Treatment: No <Cori Lu - Last Filed: 07/02/17 22:19> <Maritza Cary - Last Filed: 07/02/17 22:30> - Past Medical History Allergies/Adverse Reactions: Allergies Allergy/AdvReac Type Severity Reaction Status Date / Time latex Allergy Intermediate Verified 07/02/17 20:35 penicillin G Allergy Mild Rash Verified 07/02/17 20:35 Home Medications: Ambulatory Orders Ondansetron [Zofran Odt -] 4 mg SL TID #15 od.tablet 06/14/17 Abd/GI Specific PMHX - Complaint Specific PMHX Colitis: Yes <Cori Lu - Last Filed: 07/02/17 22:19> Review of Systems - Review of Systems Able to Perform ROS?: Yes Comments:: 07/02/17 19:54 CONSTITUTIONAL: Absent: fever, chills, diaphoresis, generalized weakness, malaise, loss of appetite HEENT: Absent: rhinorrhea, nasal congestion, throat pain, throat swelling, difficulty swallowing, mouth swelling, ear pain, eye pain, visual changes CARDIOVASCULAR: Absent: chest pain, syncope, palpitations, irregular heart rate , lightheadedness, peripheral edema RESPIRATORY: Absent: cough, shortness of breath, dyspnea with exertion, orthopnea, wheezing, stridor, hemoptysis GASTROINTESTINAL: (+) vomiting. Absent: abdominal distension, diarrhea, constipation, melena, hematochezia GENITOURINARY: (+) pelvic pain, vaginal bleeding. Absent: dysuria, frequency, urgency, hesitancy, hematuria, flank pain, genital pain MUSCULOSKELETAL: Absent: myalgia, arthralgia, joint swelling SKIN: Absent: rash, itching, pallor HEMATOLOGIC/IMMUNOLOGIC: Absent: easy bleeding, easy bruising, lymphadenopathy, frequent infections ENDOCRINE: Absent: unexplained weight gain, unexplained weight loss, heat intolerance, cold intolerance NEUROLOGIC: Absent: headache, focal weakness or paresthesias, dizziness, unsteady gait, seizure, mental status changes, bladder or bowel incontinence PSYCHIATRIC: Absent: anxiety, depression, suicidal or homicidal ideation, hallucinations. <Maritza Cary - Last Filed: 07/02/17 22:30> *Physical Exam - Vital Signs Last Vital Signs Temp Pulse Resp BP Pulse Ox 98.1 F 90 18 102/58 100 07/02/17 18:32 07/02/17 18:32 07/02/17 18:32 07/02/17 18:32 07/02/17 18:32 <Cori Lu - Last Filed: 07/02/17 22:19> - Vital Signs Last Vital Signs Temp Pulse Resp BP Pulse Ox 98.1 F 90 18 102/58 100 07/02/17 18:32 07/02/17 18:32 07/02/17 18:32 07/02/17 18:32 07/02/17 18:32 - Physical Exam Comments: 07/02/17 20:06 GENERAL: Well developed, well nourished. Awake and alert. No acute distress. HEENT: Normocephalic, atraumatic. PERRLA, EOMI. No conjunctival pallor. Sclera are non-icteric. Moist mucous membranes. Oropharynx is clear. NECK: Supple. Full ROM. No JVD. Carotid pulses 2+ and symmetric, without bruits. No thyromegaly. No lymphadenopathy. CARDIOVASCULAR: Regular rate and rhythm. No murmurs, rubs, or gallops. Distal pulses are 2+ and symmetric. PULMONARY: No evidence of respiratory distress. Lungs clear to auscultation bilaterally. No wheezing, rales or rhonchi. ABDOMINAL: Soft. Non-tender. Non-distended. No rebound or guarding. No organomegaly. Normoactive bowel sounds. MUSCULOSKELETAL: Normal range of motion at all joints. No bony deformities or tenderness. No CVA tenderness. EXTREMITIES: No cyanosis. No clubbing. No edema. No calf tenderness. SKIN: Warm and dry. Normal capillary refill. No rashes. No jaundice. NEUROLOGICAL: Alert, awake, appropriate. Cranial nerves 2-12 intact. No deficits to light touch and temperature in face, upper extremities and lower extremities. No motor deficits in the in face, upper extremities and lower extremities. Normoreflexic in the upper and lower extremities. Normal speech. Toes are downgoing bilaterally. Gait is normal without ataxia. PSYCHIATRIC: Cooperative. Good eye contact. Appropriate mood and affect. : <Maritza Cary - Last Filed: 07/02/17 22:30> ED Treatment Course - LABORATORY CBC & Chemistry Diagram: 07/02/17 20:08 <Cori Lu - Last Filed: 07/02/17 22:19> - LABORATORY CBC & Chemistry Diagram: 07/02/17 20:08 - RADIOLOGY Radiograph Interpretation: 07/02/17 22:29 Transvaginal US reported by Dr. Kenroy Martinez Impression: Single viable intrauterine gestation at 10 weeks 4 days. No definite sonographic abnormality is visualized. <Maritza Cary - Last Filed: 07/02/17 22:30> Medical Decision Making - Medical Decision Making 07/02/17 19:55 27-year-old female presents with vaginal bleeding and some pelvic discomfort. 4, para 1, 2 miscarriages. Patient was here June 06 and had a transvaginal ultrasound reveals a single live IUP 6 weeks and 6 days, heart tones 126, and a small subchorionic hematoma. Beta-hCG in June 13. Past medical history GERD, Penicillin allergy imp threatened AB plan bhcg,type screen,ultrasound <Cori Lu - Last Filed: 07/02/17 22:19> *DC/Admit/Observation/Transfer <Cori Lu - Last Filed: 07/02/17 22:19> - Attestations Scribe Attestion: 07/02/17 19:54 Documentation prepared by Maritza Cary, acting as medical staff manager for Cori Lu MD. <Maritza Cary - Last Filed: 07/02/17 22:30> Diagnosis at time of Disposition: Threatened - Discharge Dispostion Disposition: HOME Condition at time of disposition: Stable - Patient Instructions Printed Discharge Instructions: DI for Threatened Additional Instructions: please call your respiratory clinician tomorrow and see if you can be seen earlier in the office
[2017-07-02 20:15] LABS: BASOPHIL 0.4 % (0-2.0); EOSINOPHIL 1.6 % (0-4.5); MCH 29.6 pg (25.7-33.7); MCHC 34.3 g/dl (32.0-36.0); MEAN CELL VOLUME 86.3 fl (80-96); MEAN PLT VOLUME 7.5 fl (7.5-11.1); NEUTROPHILS 73.1 % (42.8-82.8); PLATELET COUNT 224 K/MM3 (134-434); RDW 13.5 % (11.6-15.6); WHITE BLOOD COUNT 8.4 K/mm3 (4.0-10.0)
[2017-07-02 20:17] LABS: URINE APPEARANCE CLOUDY; URINE BLOOD NEGATIVE (NEGATIVE); URINE COLOR DKYELLOW; URINE GLUCOSE (UA) NEGATIVE (NEGATIVE); URINE KETONE 2+ (NEGATIVE); URINE NITRITE NEGATIVE (NEGATIVE); URINE UROBILINOGEN 4.0 E.U/dl mg/dL (0.2-1.0)
[2017-07-02 20:30] LABS: URINE PROTEIN 1+ (NEGATIVE)
[2017-07-02 20:59] LABS: URINE BACTERIA RARE /hpf (NONE SEEN); URINE HYALINE CAST 5 /lpf; URINE MUCUS MANY; URINE RBC 4 /hpf (0-3); URINE WBC 15 /hpf (3-5)
[2017-07-02 21:15] LABS: URINE LEUK ESTERASE Negative (NEGATIVE)
== END 2017-07-02 22:28 | disposition home or self-care (01) ==
LOC: JER 18:24
DX: O20.0 Threatened abortion (principal); Z3A.10 10 weeks gestation of pregnancy
CPT/HCPCS: 36415; 76817-TC; 81003; 81015; 84702; 85025; 86850; 86900; 86901; 99282-25

== ENCOUNTER 2022-11-23 10:42 | Emergency (ER) | payer OTHER ==
[2022-11-23 10:53] VITALS: BP 114/59; PULSE 75; RESP 16; TEMP 98.7; BMI 34.0
[2022-11-23 12:43] LABS: PH,URINE 5.5 (5.0-8.0); URINE APPEARANCE CLEAR; URINE BILIRUBIN NEGATIVE (NEGATIVE); URINE COLOR YELLOW; URINE GLUCOSE (UA) NEGATIVE (NEGATIVE); URINE KETONE NEGATIVE (NEGATIVE); URINE LEUK ESTERASE NEGATIVE (NEGATIVE); URINE NITRITE NEGATIVE (NEGATIVE); URINE PROTEIN NEGATIVE (NEGATIVE); URINE UROBILINOGEN 0.2 mg/dL (0.2-1.0)
[2022-11-23] MEDS ORDERED: ACETAMINOPHEN 500 MG TABLET (FP) PO ONE (12:53)
[2022-11-23] MEDS ORDERED: ACETAMINOPHEN 500 MG TABLET (FP) ONE (13:05)
[2022-11-23 13:33] LABS: HEMATOCRIT 37.6 % (32.4-45.2); HEMOGLOBIN 12.5 GM/dL (10.7-15.3); MCH 27.1 pg (25.7-33.7); MCHC 33.3 g/dl (32.0-36.0); MEAN CELL VOLUME 81.6 fl (80-96); MEAN PLT VOLUME 7.4 fl (7.5-11.1); PLATELET COUNT 280 10^3/uL (134-434); RBC 4.61 M/mm3 (3.60-5.2); RDW 14.3 % (11.6-15.6); WHITE BLOOD COUNT 7.6 K/mm3 (4.0-10.0)
[2022-11-23 13:54] LABS: ALBUMIN 3.9 g/dl (3.4-5.0); BLOOD UREA NITROGEN 11.5 mg/dL (7-18); CALCIUM 9.5 mg/dL (8.5-10.1)
[2022-11-23 13:57] LABS: CREATININE 0.8 mg/dL (0.55-1.3)
[2022-11-23 13:59] LABS: BILIRUBIN,TOTAL 0.6 mg/dL (0.2-1); TOT PROT 7.6 g/dl (6.4-8.2)
== END 2022-11-23 18:36 | disposition home or self-care (01) ==
LOC: JER 10:42
DX: N83.291 Other ovarian cyst, right side (principal); K82.4 Cholesterolosis of gallbladder; R10.11 Right upper quadrant pain
CPT/HCPCS: 36415; 74177-TC; 76705-TC; 80053; 81003; 83690; 84703; 85027; 87086; 99285-25; Q9967

== ENCOUNTER 2024-01-19 11:11 | Emergency (ER) | payer OTHER ==
[2024-01-19 11:20] VITALS: BP 96/74; PULSE 79; RESP 20; TEMP 98.2; BMI 30.9
[2024-01-19 12:06] LABS: BASO % 0.6 % (0-2.0); EOS % 0.8 % (0-4.5); HEMATOCRIT 36.7 % (32.4-45.2); HEMOGLOBIN 12.2 GM/dL (10.7-15.3); LYMPH % 16.7 % (8-40); MCH 28.2 pg (25.7-33.7); MCHC 33.2 g/dl (32.0-36.0); MEAN CELL VOLUME 84.7 fl (80-96); MEAN PLT VOLUME 7.2 fl (7.5-11.1); NEUT % 75.9 % (42.8-82.8); PLATELET COUNT 226 10^3/uL (134-434); RBC 4.33 M/mm3 (3.60-5.2); RDW 14.8 % (11.6-15.6); WHITE BLOOD COUNT 8.1 K/mm3 (4.0-10.0)
[2024-01-19 12:14] LABS: URINE APPEARANCE CLEAR; URINE BILIRUBIN NEGATIVE (NEGATIVE); URINE COLOR YELLOW; URINE GLUCOSE (UA) NEGATIVE (NEGATIVE); URINE KETONE 3+ (NEGATIVE); URINE LEUK ESTERASE NEGATIVE (NEGATIVE); URINE NITRITE NEGATIVE (NEGATIVE); URINE PROTEIN NEGATIVE (NEGATIVE); URINE UROBILINOGEN 0.2 mg/dL (0.2-1.0)
[2024-01-19 12:16] LABS: ACTIVATED PTT 35.5 SECONDS (25.2-36.5); INR 1.06 (0.83-1.09)
[2024-01-19 12:32] LABS: POTASSIUM 3.8 mmol/L (3.5-5.1)
[2024-01-19 12:34] LABS: BLOOD UREA NITROGEN 7.1 mg/dL (7-18); CALCIUM 8.7 mg/dL (8.5-10.1)
[2024-01-19 12:35] LABS: ALBUMIN 3.3 g/dl (3.4-5.0); MAGNESIUM 1.8 mg/dL (1.8-2.4)
[2024-01-19 12:38] LABS: CREATININE 0.5 mg/dL (0.55-1.3)
[2024-01-19 12:39] LABS: BILIRUBIN,TOTAL 0.4 mg/dL (0.2-1); TOT PROT 6.8 g/dl (6.4-8.2)
== END 2024-01-19 15:29 | disposition home or self-care (01) ==
LOC: JER 11:11
DX: O21.9 Vomiting of pregnancy, unspecified (principal); O26.891 Other specified pregnancy related conditions, first trimester; R10.9 Unspecified abdominal pain; R10.2 Pelvic and perineal pain; Z3A.10 10 weeks gestation of pregnancy
CPT/HCPCS: 36415; 76700-TC; 76817-TC; 80053; 81003; 83735; 84702; 85025; 85610; 85730; 87086; 93005; 93010; 99285-25